=== PATIENT | female | born 1990 | race African-American/Black ===

== ENCOUNTER 2016-03-31 08:47 | Emergency (ER) | payer OTHER ==
[2016-03-31] MEDS ORDERED: ACETAMINOPHEN 325 MG TABLET PO ONE (09:36)
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
[2016-03-31 09:54] VITALS: BP 132/98
== END 2016-03-31 09:51 | disposition home or self-care (01) ==
LOC: ER 08:47
DX: R51 Headache (principal); V87.7XXA Person injured in collision between other specified motor vehicles (traffic), initial encounter
CPT/HCPCS: 99283